=== PATIENT | male | born 1940 | race Hispanic/Latino ===

== ENCOUNTER → 2018-09-12 | Outpatient (CLI) | payer OTHER | END | disposition home or self-care (01) | LOC: SHCH 12:09 | PROVIDERS: ATTEND Internal Medicine Cardiovascular Disease | DX: I08.3 Combined rheumatic disorders of mitral, aortic and tricuspid valves (principal); I10 Essential (primary) hypertension | CPT/HCPCS: 93306 ==

== ENCOUNTER → 2018-09-23 | Outpatient (CLI) | payer OTHER ==
--- NOTE | 2018-09-19 08:57 | NUR ---
PER PATIENT HE THOUGHT HE WAS HAVING A CT SCAN OF STOMACH, PER SON HE THOUGHT HIS DAD WAS HAVING AN EGD OF STOMACH. I TOLD THEM ELNEA WAS NOT WHAT THE HAD ORDERED, PATIENT AND SON REQUESTED TO GO BACK TO OFFICE OF DR. LOPEZ TO GET INFORMATION OF STRESS TEST REQUESTED AND REFUSED TO CONTINUE. NOTIFIED AGGIE AT DR. JOHNSON OFFICE TAHT BOTH PATIENT AND SON ON THEIR WAS TO OFFICE TO TALK TO DR. LOPEZ.
[~2018-09-23] VITALS: Ht 170.2 cm; Wt 70.8 kg
[~2018-09-23] MED LIST: REGADENOSON 0.4 MG/5 ML PF SYG IVP SCH
== END | disposition home or self-care (01) ==
LOC: EDUNIT# 09-15 08:20 → SHCH 09-19 08:37
PROVIDERS: ATTEND Internal Medicine Cardiovascular Disease
DX: I10 Essential (primary) hypertension (principal); I35.0 Nonrheumatic aortic (valve) stenosis
CPT/HCPCS: 78452; 93017; 96374; A9500 ×2; J2785

== ENCOUNTER 2018-10-10 09:44 | Inpatient (IN) | payer OTHER ==
[2018-10-10] VITALS (7 sets, daily range): BP systolic 83–94; BP diastolic 40–65
[~2018-10-10] VITALS: Ht 167.6 cm; Wt 63.0 kg
[~2018-10-10 09:44] MED LIST changes: +ASPI-1181 PO; +CARV6.25 PO; +CHOL100040 PO; +CYAN100099 PO; +DILT120C12 PO; +FURO40TA5 PO; +LEVO50TA11 PO; +POTA-79 PO; +PRAV40TA3 PO; -REGADENOSON 0.4 MG/5 ML PF SYG IVP SCH
[2018-10-10 09:58] LABS: BASOPHILS % (AUTO) 1.3 % (0.0-5.0); EOSINOPHILS % (AUTO) 5.5 % (0.0-8.0); HEMATOCRIT 41.8 % (42-54); LYMPHOCYTES % (AUTO) 36.3 % (21.0-51.0); MEAN CORPUSCULAR HEMOGLOBIN 28.5 pg (27.0-33.0); MEAN CORPUSCULAR HGB CONC 32.8 g/dL (32.0-36.0); MEAN CORPUSCULAR VOLUME 86.8 fL (79-99); MONOCYTES % (AUTO) 8.9 % (3.0-13.0); NUCLEATED RED BLOOD CELLS 0.2 % (0.0-0.19); PLATELET COUNT (AUTO) 193 K/uL (130-400); RED BLOOD CELL COUNT(AUTO) 4.81 MIL/uL (4.50-6.20); RED CELL DISTRIBUTION WIDTH 14.2 % (11.0-15.5); WHITE BLOOD COUNT (AUTO) 12.7 K/uL (4.8-10.8)
[2018-10-10] MEDS ORDERED: FUROSEMIDE 10 MG/ML 4ML VIAL ONE (10:04)
[2018-10-10] MEDS ORDERED: NITROGLYCERIN 1GM/1 INCH PACKET TD ONE (10:05)
[2018-10-10 10:06] LABS: CREATININE 1.4 mg/dL (0.5-1.5)
[2018-10-10 10:08] LABS: INR 0.96 (0.85-1.15); PARTIAL THROMBOPLASTIN TIME 27.1 SEC (26.3-35.5); PROTHROMBIN TIME 10.1 SEC (9.6-11.6)
[2018-10-10 10:10] LABS: ALBUMIN 3.8 g/dL (3.5-5.0); BILIRUBIN,TOTAL 0.9 mg/dL (0.2-1.0); TOTAL PROTEIN, SERUM 8.8 g/dL (6.0-8.3)
[2018-10-10] MEDS ORDERED: PROPOFOL 1000 MG/100 ML 100 ML IV ONE (10:16)
[2018-10-10] MEDS ORDERED: NITROGLYCERIN 50 MG/D5% WATER 1 BOT ONE (10:24)
[2018-10-10 10:54] LABS: B-TYPE NATRIURETIC PEPTIDE 1550 pg/mL (0-100)
[2018-10-10 11:28] LABS: ABG BASE EXCESS -0.9 mmol/L (-2.0-3.0); ABG HCO3 23.3 mmol/L (21.0-28.0); ABG OXYGEN SATURATION 98.9 % (95.0-99.0); ABG PCO2 37 mmHg (35-48)
[2018-10-10 11:42] LABS: APPEARANCE,URINE Clear (CLEAR); BILIRUBIN,URINE Negative (NEGATIVE); COLOR,URINE Yellow (YELLOW); GLUCOSE, URINE (UA) Negative (NEGATIVE); KETONES,URINE Negative (NEGATIVE); LEUKOCYTE ESTERASE ,URINE Negative (NEGATIVE); NITRATE,URINE Negative (NEGATIVE); OCCULT BLOOD,URINE Negative (NEGATIVE); PROTEIN,URINE Negative (NEGATIVE); UROBILINOGEN,URINE 0.2 mg/dL (0.2-1.0)
[2018-10-10] MEDS ORDERED: ENOXAPARIN SODIUM 30 MG/0.3 ML SQ SCH (12:25)
[2018-10-10] MEDS ORDERED: PROPOFOL 1000 MG/100 ML 100 ML IV PRN (12:30)
[2018-10-10] MEDS ORDERED: NITROGLYCERIN 1GM/1 INCH PACKET TD SCH (12:30)
[2018-10-10] MEDS ORDERED: ENOXAPARIN SODIUM 30 MG/0.3 ML SQ ONE (13:19)
[2018-10-10] MEDS ORDERED: MANNITOL 25% 50ML VIAL IV ONE (13:57)
[2018-10-10] MEDS ORDERED: AMINOCAPROIC ACID 250 MG/ML 20 ML VIAL IV ONE (13:57)
[2018-10-10] MEDS ORDERED: CALCIUM CHLORIDE 100 MG/ML 10 ML SYG IVP ONE (13:57)
[2018-10-10] MEDS ORDERED: SODIUM BICARB 8.4% 50ML SYRINGE IVP ONE (13:57)
[2018-10-10] MEDS ORDERED: HEPARIN SODIUM 1000UNIT/ML 10ML VIAL IV ONE (13:57)
[2018-10-10] MEDS ORDERED: ALBUMIN (HUMAN) 25% 50 ML IV ONE (13:57)
[2018-10-10] MEDS ORDERED: PHENYLEPHRINE HCL 10 MG/ML 1ML VIAL IV ONE (13:57)
[2018-10-10] MEDS ORDERED: MAGNESIUM SULFATE 1 GM/2 ML VIAL IM ONE (13:57)
[2018-10-10] MEDS ORDERED: ETOMIDATE 2 MG/ML 10 ML VIAL IVP ONE (15:09)
[2018-10-10] MEDS ORDERED: ROCURONIUM BROMIDE 10MG/1ML 5ML VL IV ONE (15:09)
[2018-10-10] MEDS: HEPARIN SODIUM 5000UNIT/ML 1ML VIAL SQ SCH (16:15)
[2018-10-10] MEDS: FUROSEMIDE 10 MG/ML 4ML VIAL IV SCH ×2 (16:44→20:48)
[2018-10-10 17:10] LABS: ABG BASE EXCESS -0.4 mmol/L (-2.0-3.0); ABG HCO3 21.9 mmol/L (21.0-28.0); ABG OXYGEN SATURATION 98.9 % (95.0-99.0); ABG PCO2 30 mmHg (35-48)
[2018-10-10] MEDS ORDERED: LIDOCAINE HCL-MPF 1% 2ML VIAL IVP PRN (18:45)
--- NOTE | 2018-10-10 20:00 | NUR ---
ASSESSMENT REMAINS ON VENT WITH ORDERED SETTINGS AND SEDATION. ASSESSMENT COMPLETED SEE FLOW SHEET. FAMILY AT BEDSIDE AND QUESTIONS ANSWERED. Addendum: 10/10/18 at 2023 by ELLIOT MUSE RN RN Amended: Links added.
[2018-10-10] MEDS ORDERED: FUROSEMIDE 10 MG/ML 4ML VIAL IVP SCH (21:00)
[2018-10-11] VITALS (24 sets, daily range): BP systolic 90–119; BP diastolic 55–75
[2018-10-11] MEDS: FUROSEMIDE 10 MG/ML 4ML VIAL IV SCH (04:00)
[2018-10-11 04:02] LABS: BASOPHILS % (AUTO) 0.8 % (0.0-5.0); EOSINOPHILS % (AUTO) 0.2 % (0.0-8.0); HEMATOCRIT 36.7 % (42-54); MEAN CORPUSCULAR HGB CONC 33.2 g/dL (32.0-36.0); MEAN CORPUSCULAR VOLUME 84.2 fL (79-99); MONOCYTES % (AUTO) 9.2 % (3.0-13.0); NEUTROPHILS % (AUTO) 80.8 % (40.0-77.0); PLATELET COUNT (AUTO) 175 K/uL (130-400); RED BLOOD CELL COUNT(AUTO) 4.36 MIL/uL (4.50-6.20); RED CELL DISTRIBUTION WIDTH 13.9 % (11.0-15.5); WHITE BLOOD COUNT (AUTO) 13.7 K/uL (4.8-10.8)
[2018-10-11 04:14] LABS: ABG HCO3 23.9 mmol/L (21.0-28.0); ABG OXYGEN SATURATION 97.5 % (95.0-99.0); ABG PCO2 33 mmHg (35-48)
[2018-10-11 04:15] LABS: CREATININE 1.5 mg/dL (0.5-1.5); MAGNESIUM 2.2 mg/dL (1.80-2.40); PHOSPHORUS 4.4 mg/dL (2.5-4.9); POTASSIUM 4.1 mmol/L (3.5-5.1)
[2018-10-11 04:41] LABS: B-TYPE NATRIURETIC PEPTIDE 726 pg/mL (0-100)
[2018-10-11] MEDS: HEPARIN SODIUM 5000UNIT/ML 1ML VIAL SQ SCH ×2 (04:50→16:55)
[2018-10-11] MEDS ORDERED: FUROSEMIDE 10 MG/ML 4ML VIAL IV SCH (09:00)
[2018-10-11] MEDS: FAMOTIDINE/PF 20 MG/2 ML VIAL IV SCH (09:44)
[2018-10-11 09:53] LABS: ABG BASE EXCESS -0.4 mmol/L (-2.0-3.0); ABG HCO3 22.8 mmol/L (21.0-28.0); ABG OXYGEN SATURATION 97.8 % (95.0-99.0); ABG PCO2 33 mmHg (35-48)
[2018-10-11] MEDS ORDERED: RACEPINEPHRINE HCL 2.25% 0.5 ML NEB SOLN NEB PRN (10:00)
--- NOTE | 2018-10-11 10:40 | NUR ---
DAKOTAH Griffith met with pt and daughter Margarita Do [phone]. Pt lives with daughter in her 2nd floor apt. Daughter states he is independent of all ADLS, no DME or HH services. Daughter states she is concerned about pt climbing stairs to apt after dc. Nurse informed, CM to follow and assist as needed Addendum: 10/11/18 at 1042 by SAQIB AIKEN Amended: Links added.
--- NOTE | 2018-10-11 20:05 | NUR ---
ASSESSMENT AWAKE. RESTING IN BED. DENIES PAIN/SOB. ASSESSMENT COMPLETED SEE FLOW SHEET. ENCOURAGED TO CALL FOR WANTS OR NEEDS. Addendum: 10/11/18 at 2007 by ELLIOT MUSE RN RN Amended: Links added.
[2018-10-12] VITALS (20 sets, daily range): BP systolic 90–118; BP diastolic 51–72
[2018-10-12 04:18] LABS: CREATININE 1.4 mg/dL (0.5-1.5); POTASSIUM 3.5 mmol/L (3.5-5.1)
[2018-10-12] MEDS: HEPARIN SODIUM 5000UNIT/ML 1ML VIAL SQ SCH ×2 (04:35→16:46)
[2018-10-12] MEDS ORDERED: FUROSEMIDE 10 MG/ML 4ML VIAL IV SCH (09:00)
[2018-10-12] MEDS: FAMOTIDINE/PF 20 MG/2 ML VIAL IV SCH (09:03)
[2018-10-12] MEDS: FUROSEMIDE 10 MG/ML 4ML VIAL IV SCH ×2 (09:03→21:50)
[2018-10-12] MEDS: IPRATROPIUM/ALBUTEROL SULFATE 3 ML SOLUTION IH SCH ×3 (14:27→23:34)
--- NOTE | 2018-10-12 17:30 | NUR ---
RECEIVED FROM ICU WITH REPORT FROM AMADOU MEMBRENO. PT IN NO ACUTE DISTRESS. RESP EVEN, UNLABORED. DENIES ANY CHEST PAIN/DISCOMFORT, SHORTNESS OF BREATH/DIFFICULTY BREATHING. MILD GENERALIZED EDEMA. INSTRUCTED NPO AFTER MN FOR POSSIBLE LHC PROCEDURE TOMORROW. PT/FAMILY VERBALIZED UNDERSTANDING. F/C TO BDS BAG DRAIN DRAINING YELLOW URINE. PIV X2 D/I WITH NO SWELLING, DRAINAGE OR REDNESS. WILL CONTINUE TO MONITOR.
--- NOTE | 2018-10-12 19:25 | NUR ---
Received report ,pt. for heart catheterization tomorrow, NPO post midnight
[2018-10-13] VITALS (12 sets, daily range): BP systolic 85–109; BP diastolic 50–71
--- NOTE | 2018-10-13 | NUR ---
Pt. kept NPO at this time.
[2018-10-13 04:21] LABS: BASOPHILS % (AUTO) 1.3 % (0.0-5.0); HEMATOCRIT 35.9 % (42-54); LYMPHOCYTES % (AUTO) 16.7 % (21.0-51.0); MEAN CORPUSCULAR HEMOGLOBIN 28.1 pg (27.0-33.0); MEAN CORPUSCULAR HGB CONC 33.4 g/dL (32.0-36.0); PLATELET COUNT (AUTO) 168 K/uL (130-400); RED BLOOD CELL COUNT(AUTO) 4.27 MIL/uL (4.50-6.20); RED CELL DISTRIBUTION WIDTH 13.6 % (11.0-15.5); WHITE BLOOD COUNT (AUTO) 8.3 K/uL (4.8-10.8)
[2018-10-13 04:28] LABS: CREATININE 1.4 mg/dL (0.5-1.5); POTASSIUM 3.4 mmol/L (3.5-5.1)
[2018-10-13 04:46] LABS: B-TYPE NATRIURETIC PEPTIDE 834 pg/mL (0-100)
[2018-10-13] MEDS: POTASSIUM CHLORIDE 20MEQ/100ML 100 ML IV PRN (06:21)
[2018-10-13] MEDS ORDERED: IOHEXOL 350 MG/ML 100ML INFUS..BTL IV ONE (07:13)
[2018-10-13] MEDS ORDERED: LIDOCAINE HCL 2% 20ML ONE (07:13)
[2018-10-13] MEDS: IPRATROPIUM/ALBUTEROL SULFATE 3 ML SOLUTION IH SCH ×4 (07:15→23:26)
[2018-10-13] MEDS ORDERED: IOHEXOL-350 50ML VIAL IV ONE (08:08)
[2018-10-13] MEDS: LEVOTHYROXINE 50 MCG TABLET PO SCH (10:16)
[2018-10-13] MEDS: FAMOTIDINE/PF 20 MG/2 ML VIAL IV SCH (10:16)
[2018-10-13] MEDS: CARVEDILOL 3.125 MG TABLET PO SCH ×2 (10:24→21:00)
[2018-10-13] MEDS: ATORVASTATIN CALCIUM 10 MG TABLET PO SCH (21:13)
[2018-10-13] MEDS: ASPIRIN 81 MG EC TAB PO SCH (21:13)
[2018-10-14] VITALS (7 sets, daily range): BP systolic 93–112; BP diastolic 54–65
[2018-10-14 05:00] LABS: BASOPHILS % (AUTO) 1.3 % (0.0-5.0); EOSINOPHILS % (AUTO) 7.8 % (0.0-8.0); HEMATOCRIT 35.1 % (42-54); LYMPHOCYTES % (AUTO) 15.8 % (21.0-51.0); MEAN CORPUSCULAR HEMOGLOBIN 28.4 pg (27.0-33.0); MEAN CORPUSCULAR HGB CONC 33.5 g/dL (32.0-36.0); MEAN CORPUSCULAR VOLUME 84.9 fL (79-99); MONOCYTES % (AUTO) 11.6 % (3.0-13.0); NEUTROPHILS % (AUTO) 63.5 % (40.0-77.0); PLATELET COUNT (AUTO) 160 K/uL (130-400); RED BLOOD CELL COUNT(AUTO) 4.14 MIL/uL (4.50-6.20); RED CELL DISTRIBUTION WIDTH 13.8 % (11.0-15.5); WHITE BLOOD COUNT (AUTO) 6.4 K/uL (4.8-10.8)
[2018-10-14 05:11] LABS: INR 0.97 (0.85-1.15); PARTIAL THROMBOPLASTIN TIME 31.2 SEC (26.3-35.5); PROTHROMBIN TIME 10.2 SEC (9.6-11.6)
[2018-10-14 05:18] LABS: CREATININE 1.2 mg/dL (0.5-1.5); MAGNESIUM 2.1 mg/dL (1.80-2.40); POTASSIUM 3.7 mmol/L (3.5-5.1)
[2018-10-14 05:26] LABS: B-TYPE NATRIURETIC PEPTIDE 843 pg/mL (0-100)
[2018-10-14] MEDS: IPRATROPIUM/ALBUTEROL SULFATE 3 ML SOLUTION IH SCH ×3 (06:53→18:43)
[2018-10-14] MEDS: LEVOTHYROXINE 50 MCG TABLET PO SCH (08:44)
[2018-10-14] MEDS: CARVEDILOL 3.125 MG TABLET PO SCH ×2 (08:45→20:59)
[2018-10-14] MEDS: FAMOTIDINE/PF 20 MG/2 ML VIAL IV SCH (08:45)
--- NOTE | 2018-10-14 13:28 | NUR ---
DR. Cristela KIRK IN ROOM SPEAKING WITH PT. RE:PLAN OF CARE INCLUDING CT SCAN OF CHEST.
--- NOTE | 2018-10-14 13:58 | NUR ---
F/C REMOVED, TOLERATED WELL. CALL LIGHT WITHIN REACH. FAMILY ALLOWED IN ROOM AFTER REMOVAL.
[2018-10-14] MEDS: ASPIRIN 81 MG EC TAB PO SCH (20:59)
[2018-10-14] MEDS: ATORVASTATIN CALCIUM 10 MG TABLET PO SCH (20:59)
[2018-10-14] MEDS: METHYLPREDNISOLONE SOD SUCC 40MG/ML 1ML IVP SCH (21:21)
[2018-10-15] MEDS: IPRATROPIUM/ALBUTEROL SULFATE 3 ML SOLUTION IH SCH ×5 (01:26→23:53)
[2018-10-15 04:03] VITALS: BP 100/61
[2018-10-15 04:44] LABS: HEMATOCRIT 33.6 % (42-54); MEAN CORPUSCULAR HGB CONC 33.6 g/dL (32.0-36.0); MEAN CORPUSCULAR VOLUME 83.2 fL (79-99); PLATELET COUNT (AUTO) 174 K/uL (130-400); RED BLOOD CELL COUNT(AUTO) 4.04 MIL/uL (4.50-6.20); RED CELL DISTRIBUTION WIDTH 13.5 % (11.0-15.5); WHITE BLOOD COUNT (AUTO) 4.1 K/uL (4.8-10.8)
[2018-10-15 04:57] LABS: CREATININE 1.2 mg/dL (0.5-1.5); MAGNESIUM 2.2 mg/dL (1.80-2.40); POTASSIUM 4.4 mmol/L (3.5-5.1)
[2018-10-15] MEDS: LEVOTHYROXINE 50 MCG TABLET PO SCH (06:25)
[2018-10-15 07:45] VITALS: BP 97/58
[2018-10-15] MEDS: FUROSEMIDE 20 MG TABLET PO SCH ×2 (09:19→17:08)
[2018-10-15] MEDS: CARVEDILOL 3.125 MG TABLET PO SCH ×2 (09:20→20:11)
[2018-10-15] MEDS: METHYLPREDNISOLONE SOD SUCC 40MG/ML 1ML IVP SCH ×2 (09:20→20:10)
[2018-10-15] MEDS: FAMOTIDINE/PF 20 MG/2 ML VIAL IV SCH (09:20)
--- NOTE | 2018-10-15 09:30 | NUR ---
LEFT THORACENTESIS DONE BY DR. ELIAS AT BEDSIDE, 500 CC DARK YELLOW FLUID REMOVED. PT TOLERATED PROCEDURE WELL. O2 SAT 97-98% ON ROOM AIR. ORDERS RECEIVED AND CARRIED OUT.
[2018-10-15 10:38] LABS: TOTAL PROTEIN, SERUM 8.2 g/dL (6.0-8.3)
[2018-10-15 11:24] LABS: APPEARANCE BODY FLUID CLEAR (CLEAR); COLOR,BODY FLUID YELLOW (LT YELLOW); SPECIMENTYPE,BODY FLUID PLEURAL
[2018-10-15 11:25] LABS: BODY FLUID RBC 595 /cu. mm.; BODY FLUID WBC 282 /cu. mm.; TOTAL VOLUME,BODY FLUID 510 mL
[2018-10-15 11:33] VITALS: BP 108/63
[2018-10-15 11:47] LABS: BF EOSINOPHIL 2 %; BF LYMPHOCYTE 57 %; BF MESOTHELIAL 31 %
[2018-10-15 15:27] VITALS: BP 90/54
[2018-10-15 20:00] VITALS: BP 107/62
[2018-10-15] MEDS: ASPIRIN 81 MG EC TAB PO SCH (20:10)
[2018-10-15] MEDS: ATORVASTATIN CALCIUM 10 MG TABLET PO SCH (20:10)
[2018-10-16] VITALS (8 sets, daily range): BP systolic 0–104; BP diastolic 47–71
[2018-10-16] MEDS: IPRATROPIUM/ALBUTEROL SULFATE 3 ML SOLUTION IH SCH ×4 (06:21→23:56)
[2018-10-16] MEDS: LEVOTHYROXINE 50 MCG TABLET PO SCH (06:39)
[2018-10-16] MEDS: FUROSEMIDE 20 MG TABLET PO SCH ×2 (10:24→16:12)
[2018-10-16] MEDS: CARVEDILOL 3.125 MG TABLET PO SCH ×2 (10:24→20:59)
[2018-10-16] MEDS: FAMOTIDINE/PF 20 MG/2 ML VIAL IV SCH (10:25)
[2018-10-16] MEDS: ATORVASTATIN CALCIUM 10 MG TABLET PO SCH (21:00)
[2018-10-16] MEDS: ASPIRIN 81 MG EC TAB PO SCH (21:00)
[2018-10-17] VITALS (7 sets, daily range): BP systolic 95–108; BP diastolic 49–67
[2018-10-17] MEDS: LEVOTHYROXINE 50 MCG TABLET PO SCH (06:14)
[2018-10-17] MEDS: IPRATROPIUM/ALBUTEROL SULFATE 3 ML SOLUTION IH SCH ×4 (06:29→23:11)
[2018-10-17] MEDS: FUROSEMIDE 20 MG TABLET PO SCH ×2 (07:08→16:16)
[2018-10-17] MEDS: CARVEDILOL 3.125 MG TABLET PO SCH ×2 (07:08→20:32)
[2018-10-17] MEDS: FAMOTIDINE 20MG TAB 20 MG TAB PO SCH (07:08)
--- NOTE | 2018-10-17 07:45 | NUR ---
ASSESSMENT PT IS AAOX3 DENIES CP DENIES SOB DENIES NV NO COMPLAINTS RESTING IN BED. BREATHING PATTERN IS EVEN AND UNLABORED. CALL LIGHT WITHIN REACH.
--- NOTE | 2018-10-17 12:30 | NUR ---
Status Patient sitting up in chair, eating lunch complaints, call light within reach.
[2018-10-17 14:29] LABS: HEMATOCRIT 37.3 % (42-54); MEAN CORPUSCULAR HEMOGLOBIN 27.4 pg (27.0-33.0); MEAN CORPUSCULAR HGB CONC 32.6 g/dL (32.0-36.0); PLATELET COUNT (AUTO) 215 K/uL (130-400); RED BLOOD CELL COUNT(AUTO) 4.44 MIL/uL (4.50-6.20); RED CELL DISTRIBUTION WIDTH 13.9 % (11.0-15.5); WHITE BLOOD COUNT (AUTO) 7.8 K/uL (4.8-10.8)
[2018-10-17 14:40] LABS: CREATININE 1.3 mg/dL (0.5-1.5); HEMOGLOBIN A1C 6.3 % (4.0-6.0); POTASSIUM 3.8 mmol/L (3.5-5.1)
[2018-10-17 14:44] LABS: INR 0.98 (0.85-1.15); PROTHROMBIN TIME 10.3 SEC (9.6-11.6)
--- NOTE | 2018-10-17 15:00 | NUR ---
Consent obtained for surgery Patient aware to be nothing by mouth after midnight. Family at bedside.
[2018-10-17] MEDS: ATORVASTATIN CALCIUM 10 MG TABLET PO SCH (20:32)
[2018-10-17] MEDS: ASPIRIN 81 MG EC TAB PO SCH (21:00)
[2018-10-18] VITALS (20 sets, daily range): BP systolic 97–200; BP diastolic 48–89
--- NOTE | 2018-10-18 01:51 | NUR ---
PATIENT RESTING IN BED. DENIES CHEST PAIN OR SOB. SCHEDULED FOR VALVE REPLACEMENT IN AM. PATIENT NPO SINCE MIDNIGHT.
[2018-10-18 03:48] LABS: BASOPHILS % (AUTO) 2.5 % (0.0-5.0); EOSINOPHILS % (AUTO) 8.8 % (0.0-8.0); HEMATOCRIT 32.6 % (42-54); LYMPHOCYTES % (AUTO) 28.5 % (21.0-51.0); MEAN CORPUSCULAR HEMOGLOBIN 28.4 pg (27.0-33.0); MEAN CORPUSCULAR HGB CONC 33.6 g/dL (32.0-36.0); MEAN CORPUSCULAR VOLUME 84.5 fL (79-99); MONOCYTES % (AUTO) 11.9 % (3.0-13.0); NEUTROPHILS % (AUTO) 48.3 % (40.0-77.0); NUCLEATED RED BLOOD CELLS 0.1 % (0.0-0.19); PLATELET COUNT (AUTO) 176 K/uL (130-400); RED BLOOD CELL COUNT(AUTO) 3.85 MIL/uL (4.50-6.20); RED CELL DISTRIBUTION WIDTH 13.6 % (11.0-15.5); WHITE BLOOD COUNT (AUTO) 6.9 K/uL (4.8-10.8)
[2018-10-18 03:54] LABS: INR 1.01 (0.85-1.15); PROTHROMBIN TIME 10.6 SEC (9.6-11.6)
[2018-10-18 03:58] LABS: CREATININE 1.3 mg/dL (0.5-1.5); POTASSIUM 3.8 mmol/L (3.5-5.1)
[2018-10-18] MEDS: IPRATROPIUM/ALBUTEROL SULFATE 3 ML SOLUTION IH SCH ×4 (06:19→23:22)
[2018-10-18] MEDS: LEVOTHYROXINE 50 MCG TABLET PO SCH (06:34)
[2018-10-18] MEDS: FAMOTIDINE 20MG TAB 20 MG TAB PO SCH (08:00)
--- NOTE | 2018-10-18 08:00 | NUR ---
ASSESSMENT PT IS AAOX3 DENIES CP DENIES SOB DENIES NV NO COMPLAINTS RESTING IN BED. NPO STATUS FOR VALVE SURGERY TODAY. CALL LIGHT WITHIN REACH.
[2018-10-18] MEDS: FUROSEMIDE 20 MG TABLET PO SCH (08:10)
[2018-10-18] MEDS: CARVEDILOL 3.125 MG TABLET PO SCH (08:54)
[2018-10-18] MEDS ORDERED: NITROGLYCERIN 50 MG/D5% WATER 1 BOT ONE (09:29)
[2018-10-18] MEDS ORDERED: SODIUM CHLORIDE 0.9% 1000ML 1,000 ML IV ONE (09:30)
[2018-10-18] MEDS ORDERED: CLINDAMYCIN 900 MG/D5% WATER 50 ML IV ONE (09:30)
--- NOTE | 2018-10-18 09:41 | NUR ---
PREOP PREP pt wiped with chlorhexidine gluconate 2% cloth by Quentin Dominguez Addendum: 10/18/18 at 0944 by EVANGELISTA AUSTIN RN RN Amended: Links added.
--- NOTE | 2018-10-18 09:42 | NUR ---
DOWN TO OR VIA BED WITH OR STAFF, TELE PACK REMOVED
[2018-10-18] MEDS ORDERED: DELNIDO FORMULA 1 BAG IV ONE (10:21)
[2018-10-18] MEDS ORDERED: THROMBIN-JMI 5000 UNIT/VIAL TP ONE (10:21)
[2018-10-18] MEDS ORDERED: PROTAMINE SULFATE 10 MG/ML 25ML VIAL IV ONE (10:52)
[2018-10-18] MEDS ORDERED: PROPOFOL 10 MG/ML 20ML VIAL IV ONE (10:52)
[2018-10-18] MEDS ORDERED: HEPARIN SODIUM 1000UNIT/ML 10ML VIAL ONE (10:52)
[2018-10-18] MEDS ORDERED: ESMOLOL HCL 10 MG/ML 10 ML VIAL ONE (10:52)
[2018-10-18] MEDS ORDERED: AMINOCAPROIC ACID 250 MG/ML 20 ML VIAL IV ONE (10:52)
[2018-10-18] MEDS ORDERED: NOREPINEPHRINE BITARTRATE 1 MG/1 ML ML IV ONE (10:52)
[2018-10-18] MEDS ORDERED: SODIUM BICARB 50MEQ 50ML VIAL ONE (10:52)
[2018-10-18] MEDS ORDERED: FENTANYL CITRATE PF 50 MCG/1 ML 20ML VIAL IJ ONE (10:52)
[2018-10-18] MEDS ORDERED: MIDAZOLAM HCL 1 MG/ML 5ML VIAL ONE (10:52)
[2018-10-18] MEDS ORDERED: LIDOCAINE PF 2% 5ML ABBOJECT ONE (10:52)
[2018-10-18] MEDS ORDERED: EPINEPHRINE 1 MG/ML AMPULE ONE (10:52)
[2018-10-18] MEDS ORDERED: ROCURONIUM 10MG/1ML SYR 10 MG/ML ML ONE (10:53)
[2018-10-18] MEDS ORDERED: CLINDAMYCIN 900 MG/D5% WATER 50 ML IV SCH ×2 (11:00→21:00)
[2018-10-18] MEDS ORDERED: OCTYL 2-CYANOACRYLATE 1 EACH TP ONE (11:33)
[2018-10-18 11:34] LABS: ABG BASE EXCESS 1.1 mmol/L (-2.0-3.0); ABG HCO3 24.2 mmol/L (21.0-28.0); ABG OXYGEN SATURATION 99.3 % (95.0-99.0); ABG PCO2 33 mmHg (35-48)
[2018-10-18] MEDS ORDERED: ROPIVACAINE 0.5% 5MG/ML 30ML IJ ONE (11:34)
[2018-10-18] MEDS ORDERED: BACITRACIN 50,000 UNIT VIAL ONE (11:34)
[2018-10-18 12:09] LABS: ABG BASE EXCESS 3.1 mmol/L (-2.0-3.0); ABG HCO3 25.7 mmol/L (21.0-28.0); ABG OXYGEN SATURATION 99.2 % (95.0-99.0); ABG PCO2 31 mmHg (35-48)
[2018-10-18 12:34] LABS: ABG BASE EXCESS 4.1 mmol/L (-2.0-3.0); ABG HCO3 26.3 mmol/L (21.0-28.0); ABG OXYGEN SATURATION 98.9 % (95.0-99.0); ABG PCO2 30 mmHg (35-48)
[2018-10-18] MEDS ORDERED: SODIUM CHLORIDE 0.9% 500ML 500 ML IV SCH (12:58)
[2018-10-18] MEDS ORDERED: MAGNESIUM 2GM PREMIX 50ML 50 ML IV PRN (13:00)
[2018-10-18] MEDS ORDERED: POTASSIUM PHOS 15 mMOL+NS250ML 250 ML IV PRN (13:00)
[2018-10-18] MEDS ORDERED: MORPHINE SULFATE 2 MG/ML 1ML SYG IV PRN (13:00)
[2018-10-18] MEDS ORDERED: SODIUM CHLORIDE 0.9% 1000ML 1,000 ML IV SCH (13:00)
[2018-10-18] MEDS ORDERED: AMINOCAPROIC ACID 15,000 MG in SODIUM CHLORIDE 0.9% 250 ML IV SCH (13:00)
[2018-10-18] MEDS ORDERED: SODIUM CHLORIDE 0.9% 250 ML IV PRN (13:00)
[2018-10-18] MEDS ORDERED: ONDANSETRON HCL 4 MG/2 ML VIAL IV PRN (13:00)
[2018-10-18] MEDS ORDERED: ACETAMINOPHEN 325 MG TAB PO PRN ×2 (13:00)
[2018-10-18] MEDS ORDERED: GLUCAGON 1MG KIT 1 MG ML IM PRN (13:00)
[2018-10-18] MEDS ORDERED: TRAMADOL HCL 50 MG TABLET PO PRN ×2 (13:00)
[2018-10-18] MEDS ORDERED: MORPHINE SULFATE 4 MG/1ML SYG IV PRN (13:00)
[2018-10-18] MEDS ORDERED: POTASSIUM CHLORIDE 20MEQ/100ML 100 ML IV PRN (13:00)
[2018-10-18] MEDS ORDERED: DEXTROSE 50%-WATER 50 ML DISP.SYRIN IV PRN (13:00)
[2018-10-18] MEDS ORDERED: EPINEPHRINE 2 MG in DEXTROSE 5%-WATER 250 ML IV PRN (13:00)
[2018-10-18] MEDS ORDERED: PROPOFOL 1000 MG/100 ML 100 ML IV PRN (13:00)
[2018-10-18] MEDS ORDERED: NOREPINEPHRINE 4MG/NS 250ML 250 ML IV PRN (13:00)
[2018-10-18] MEDS ORDERED: INSULIN REGULAR, HUMAN 3ML 100 UNIT in SODIUM CHLORIDE 0.9% 99 ML IV SCH ×2 (13:00)
[2018-10-18] MEDS ORDERED: ACETAMINOPHEN 650 MG SUPPOSITORY RC PRN (13:00)
[2018-10-18] MEDS ORDERED: SODIUM CHLORIDE 0.9% 10 ML VIAL IVP PRN (13:00)
[2018-10-18] MEDS ORDERED: NITROGLYCERIN 50 MG/D5% WATER 250 BOT IV SCH (13:00)
[2018-10-18] MEDS ORDERED: ALBUMIN (HUMAN) 5% 250 ML IV PRN (13:00)
[2018-10-18 13:31] LABS: ABG BASE EXCESS -1.2 mmol/L (-2.0-3.0); ABG HCO3 22.4 mmol/L (21.0-28.0); ABG OXYGEN SATURATION 99.1 % (95.0-99.0); ABG PCO2 33 mmHg (35-48)
[2018-10-18] MEDS ORDERED: EPHEDRINE SULFATE 50 MG/ML AMPULE ONE (13:39)
--- NOTE | 2018-10-18 13:43 | NUR ---
RECEIVE PT FROM O.R. STAFF- TRANSITION IN PROGRESS. ET TUBE INTACT AND PT PLACED ON VENT WITH BBS PRESENT. ASSISTANT DISTRICT ATTORNEY ON. PULSES PRESENT
[2018-10-18] MEDS ORDERED: ROPIVACAINE 0.2% 2MG/ML 100ML VIAL IJ ONE (13:54)
--- NOTE | 2018-10-18 14:00 | NUR ---
PT IS SEDATE. UNRESPONSIVE AT PRESENT TIME. WILL CONTINUE TO MONITOR . I ASSESSED OGT TUBE THAT PT ARRIVED WITH AND IT IS NOT IN PLACE .UNABLE TO HEAR AIR BOLUS OVER EPIGASTRIUM. I WAS UNABLE TO REPOSITION IT . OGT TUBE REMOVED INTACT. NOT REINSERTED . OTHERWISE STABLE .PLEASE REFER TO ASSESSMENT FLOW SHEET
[2018-10-18 14:11] LABS: ABG BASE EXCESS -3.1 mmol/L (-2.0-3.0); ABG HCO3 20.7 mmol/L (21.0-28.0); ABG OXYGEN SATURATION 98.5 % (95.0-99.0); ABG PCO2 33 mmHg (35-48)
[2018-10-18] MEDS: SODIUM BICARB 50MEQ 50ML VIAL IV PRN ×2 (14:30→20:25)
--- NOTE | 2018-10-18 14:30 | NUR ---
FAMILY IN TO SEE PT.
[2018-10-18 15:06] LABS: HEMATOCRIT 28.2 % (42-54); MEAN CORPUSCULAR HEMOGLOBIN 28.2 pg (27.0-33.0); MEAN CORPUSCULAR HGB CONC 33.1 g/dL (32.0-36.0); MEAN CORPUSCULAR VOLUME 85.1 fL (79-99); PLATELET COUNT (AUTO) 125 K/uL (130-400); RED BLOOD CELL COUNT(AUTO) 3.32 MIL/uL (4.50-6.20); WHITE BLOOD COUNT (AUTO) 14.7 K/uL (4.8-10.8)
[2018-10-18 15:12] LABS: CREATININE 0.9 mg/dL (0.5-1.5); MAGNESIUM 2.9 mg/dL (1.80-2.40); POTASSIUM 4.4 mmol/L (3.5-5.1)
[2018-10-18 15:13] LABS: INR 1.19 (0.85-1.15); PARTIAL THROMBOPLASTIN TIME 30.3 SEC (26.3-35.5); PROTHROMBIN TIME 12.5 SEC (9.6-11.6)
[2018-10-18] MEDS ORDERED: Q-PUMP 1 EACH IRRIG SCH (16:00)
--- NOTE | 2018-10-18 16:22 | NUR ---
PT NOW AWAKE AND FOLLOWING COMMANDS. VENT RATE DECREASED TO 10 PER R.T.
[2018-10-18 16:23] LABS: ABG BASE EXCESS -0.2 mmol/L (-2.0-3.0); ABG HCO3 23.1 mmol/L (21.0-28.0); ABG OXYGEN SATURATION 98.5 % (95.0-99.0); ABG PCO2 34 mmHg (35-48)
[2018-10-18] MEDS: CALCIUM GLUCONATE 1 GM in SODIUM CHLORIDE 0.9% 50 ML IV PRN ×2 (17:08→20:19)
--- NOTE | 2018-10-18 17:10 | NUR ---
VENT RATE DECREASED TO 6 PER PROTOCOL. PT IS AWAKE AND FOLLOWING COMMANDS
--- NOTE | 2018-10-18 17:30 | NUR ---
VENT RATE DECREASED TO 4. WILL OBSERVE AND CONTINUE WEANING PROCESS.
[2018-10-18 18:18] LABS: ABG BASE EXCESS 1.6 mmol/L (-2.0-3.0); ABG OXYGEN SATURATION 97.9 % (95.0-99.0); ABG PCO2 46 mmHg (35-48)
--- NOTE | 2018-10-18 18:34 | NUR ---
PT IS AWAKE AND ALERT, HE DOES NOT PERFORM WEANING PARAMETER CORRECTLY. I HAVE NOTIFIED DR MARTINEZ AND INFORMED HIM OF V/S,PT CONDITION,RESPIRATORY EFFORT , IO'S. ORDERS RECEIVED TO EXTUBATE PATIENT
[2018-10-18] MEDS: CLINDAMYCIN 900 MG/D5% WATER 50 ML IV SCH (18:47)
--- NOTE | 2018-10-18 18:55 | NUR ---
PT EXTUBATED-PLACED ON 40% COOL MSIT
--- NOTE | 2018-10-18 19:10 | NUR ---
HAND OFF REPORT GIVEN TO DEBORAH TOBAR
[2018-10-18] MEDS: ASPIRIN 81 MG EC TAB PO SCH (19:22)
[2018-10-18] MEDS: ATORVASTATIN CALCIUM 10 MG TABLET PO SCH (19:23)
[2018-10-18 20:24] LABS: ABG HCO3 24.7 mmol/L (21.0-28.0); ABG OXYGEN SATURATION 98.9 % (95.0-99.0); ABG PCO2 45 mmHg (35-48)
[2018-10-19] VITALS (25 sets, daily range): BP systolic 102–151; BP diastolic 43–67
[2018-10-19] MEDS ORDERED: CALCIUM GLUCONATE 1 GM/10 ML VIAL IV ONE (00:38)
[2018-10-19] MEDS: CALCIUM GLUCONATE 1 GM in SODIUM CHLORIDE 0.9% 50 ML IV PRN ×2 (00:41→04:46)
[2018-10-19] MEDS ORDERED: HEPARIN SODIUM 5000UNIT/ML 1ML VIAL ONE (00:41)
[2018-10-19] MEDS: CLINDAMYCIN 900 MG/D5% WATER 50 ML IV SCH ×2 (02:50→11:48)
[2018-10-19 04:18] LABS: ABG BASE EXCESS 1.8 mmol/L (-2.0-3.0); ABG HCO3 27.6 mmol/L (21.0-28.0); ABG OXYGEN SATURATION 98.7 % (95.0-99.0); ABG PCO2 48 mmHg (35-48)
[2018-10-19 04:25] LABS: HEMATOCRIT 29.6 % (42-54); MEAN CORPUSCULAR HEMOGLOBIN 27.7 pg (27.0-33.0); MEAN CORPUSCULAR HGB CONC 32.9 g/dL (32.0-36.0); MEAN CORPUSCULAR VOLUME 84.4 fL (79-99); PLATELET COUNT (AUTO) 153 K/uL (130-400); RED BLOOD CELL COUNT(AUTO) 3.51 MIL/uL (4.50-6.20); RED CELL DISTRIBUTION WIDTH 14.2 % (11.0-15.5); WHITE BLOOD COUNT (AUTO) 13.3 K/uL (4.8-10.8)
[2018-10-19 04:48] LABS: CREATININE 1.1 mg/dL (0.5-1.5); MAGNESIUM 2.4 mg/dL (1.80-2.40); PHOSPHORUS 4.7 mg/dL (2.5-4.9); POTASSIUM 4.4 mmol/L (3.5-5.1)
[2018-10-19 04:52] LABS: INR 1.07 (0.85-1.15); PARTIAL THROMBOPLASTIN TIME 22.6 SEC (26.3-35.5); PROTHROMBIN TIME 11.2 SEC (9.6-11.6)
--- NOTE | 2018-10-19 05:00 | NUR ---
BATH PT GIVEN BED BATH AND TRANSFERRED TO CHAIR. PT TOLERATED WELL NO ADVERSE REACTIONS NOTED OR VOICED.
--- NOTE | 2018-10-19 05:30 | NUR ---
TRANSFER PT TRANSFERRED TO ROOM 218 AT THIS TIME. PT SAFETY MAINTAINED WILL CONTINUE TO MONITOR.
[2018-10-19] MEDS: LEVOTHYROXINE 50 MCG TABLET PO SCH (06:07)
[2018-10-19] MEDS: IPRATROPIUM/ALBUTEROL SULFATE 3 ML SOLUTION IH SCH ×4 (06:40→23:09)
--- NOTE | 2018-10-19 08:00 | NUR ---
DR. CORDOVA IN TO SEE PT. PLAN OF CARE DISCUSSED. NEW ORDERS RECEIVED AND NOTED.
[2018-10-19] MEDS: FUROSEMIDE 10 MG/ML 2ML VIAL IV SCH ×2 (08:25→20:02)
[2018-10-19] MEDS: FAMOTIDINE 20MG TAB 20 MG TAB PO SCH (08:25)
[2018-10-19] MEDS: ENOXAPARIN SODIUM 30 MG/0.3 ML SQ SCH (10:51)
--- NOTE | 2018-10-19 15:30 | NUR ---
Epi drip weaned off. Tolerating well. Sbp 100-110s. Denies any complaints. Sitting in recliner comfortably.
--- NOTE | 2018-10-19 15:49 | NUR ---
RDSCREEN - LOS X 9 DAYS Patient PostOp Aortic stenosis. Patient tolerating CVR diet with no report of GI distress. Patient LBM 10/16/18. Patient monitored labs: BUN 20, Glu 127. SAURABH to continue to monitor. Please notify SAURABH as nutritional concerns arise. Thank you. Addendum: 10/19/18 at [address] Amended: Links added.
--- NOTE | 2018-10-19 19:00 | NUR ---
ASSESSMENT ASSUMED CARE. AA&OX3. SITTING UP IN CARDIAC CHAIR. NO DISTRESS NOTED. UNLABORED RESPIRATIONS. DENIES PAIN & DISCOMFORT AT THIS TIME. CHEST TUBE SECURE & PATENT. AMBU PUMP SECURE & INFUSING 8ML/HR. MILLER CATHETER SECURE & PATENT. BEDSIDE MONITORING. SINUS RHYTHM HR 86. FAMILY IN ROOM. INSTRUCTED ON PLAN OF CARE. CALL LIGHT WITHIN REACH. INSTRUCTED TO CALL FOR ASSISTANCE.
[2018-10-19] MEDS: ASPIRIN 81 MG EC TAB PO SCH (20:02)
[2018-10-19] MEDS: ATORVASTATIN CALCIUM 10 MG TABLET PO SCH (20:02)
--- NOTE | 2018-10-19 21:00 | NUR ---
ASSISTED BACK TO BED STRONG, STEADY GAIT. TOLERATED WELL. ALL TUBES & LINES SECURE. CALL LIGHT WITHIN REACH. INSTRUCTED TO CALL FOR ASSISTANCE.
[2018-10-20] VITALS (15 sets, daily range): BP systolic 93–137; BP diastolic 43–64
[2018-10-20 03:39] LABS: MEAN CORPUSCULAR HEMOGLOBIN 28.5 pg (27.0-33.0); MEAN CORPUSCULAR HGB CONC 33.5 g/dL (32.0-36.0); PLATELET COUNT (AUTO) 108 K/uL (130-400); RED BLOOD CELL COUNT(AUTO) 3.06 MIL/uL (4.50-6.20); WHITE BLOOD COUNT (AUTO) 11.5 K/uL (4.8-10.8)
[2018-10-20 03:51] LABS: CREATININE 1.1 mg/dL (0.5-1.5); POTASSIUM 3.4 mmol/L (3.5-5.1)
[2018-10-20] MEDS: POTASSIUM CHLORIDE 20MEQ/100ML 100 ML IV PRN (05:46)
[2018-10-20] MEDS: IPRATROPIUM/ALBUTEROL SULFATE 3 ML SOLUTION IH SCH ×4 (06:51→23:41)
[2018-10-20] MEDS: LEVOTHYROXINE 50 MCG TABLET PO SCH (07:09)
--- NOTE | 2018-10-20 07:30 | NUR ---
ASSESSMENT ENCOUNTERED PT UP IN CHAIR, A&OX3, CALM COOPERATIVE AND DOES NOT APPEAR TO BE IN ANY DISTRESS NOR ANY NEURO DEFICITS PRESENT. PT DENIES PAIN, SOB, NAUSEA. CORTIS TO RT IJ, SITE DRY AND INTACT, DRESSINGS TO RT CHEST DRY AND INTACT, CHEST TUBE WITH SEROSANGUINEOUS DRAINAGE WITH PACER WIRES PRESENT AND SECURED TO DRESSING, INCENTIVE SPIROMETER UP AVERAGE OF 250ML PER ATTEMPT, OBSERVATION AND DEMONSTRATION FOR USE OF INCENTIVE SPIROMETER GIVEN AND ENCOURAGED FREQUENT USE EVERY [address] PL[address] AND SECURED WITH STAT LOCK. CALL LIGHT WITHIN REACH.
[2018-10-20] MEDS: FAMOTIDINE 20MG TAB 20 MG TAB PO SCH (07:52)
[2018-10-20] MEDS: FUROSEMIDE 20 MG TABLET PO SCH ×2 (07:52→17:39)
--- NOTE | 2018-10-20 08:25 | NUR ---
DR AGARWAL AT BEDSIDE UPDATE GIVEN, ORDERS RECEIVED.
[2018-10-20] MEDS: ENOXAPARIN SODIUM 30 MG/0.3 ML SQ SCH ×2 (09:00→12:20)
--- NOTE | 2018-10-20 10:55 | NUR ---
MILLER & LUIS FELIPE REMOVED TOLERATED WELL, CALL LIGHT WITHIN REACH.
[2018-10-20] MEDS ORDERED: FUROSEMIDE 10 MG/ML 4ML VIAL IV SCH (12:00)
[2018-10-20] MEDS: CARVEDILOL 3.125 MG TABLET PO SCH ×2 (12:19→21:42)
[2018-10-20 14:03] LABS: APPEARANCE,URINE CLEAR (CLEAR); BILIRUBIN,URINE NEGATIVE (NEGATIVE); COLOR,URINE YELLOW (YELLOW); GLUCOSE, URINE (UA) NEGATIVE (NEGATIVE); KETONES,URINE NEGATIVE (NEGATIVE); LEUKOCYTE ESTERASE ,URINE SMALL (NEGATIVE); NITRATE,URINE NEGATIVE (NEGATIVE); OCCULT BLOOD,URINE TRACE-INTACT (NEGATIVE); PH,URINE 5.5 (5.0-8.0); PROTEIN,URINE NEGATIVE (NEGATIVE); UROBILINOGEN,URINE 0.2 mg/dL (0.2-1.0)
[2018-10-20 14:31] LABS: BACTERIA,URINE Rare /HPF (None Seen); RBC,URINE 0-1 /HPF (0-1)
[2018-10-20 14:33] LABS: MUCUS,URINE Rare LPF (None Seen); SQUAMOUS EPITHELIAL CELL,UR None Seen /HPF (0-2)
[2018-10-20] MEDS ORDERED: POTASSIUM CHLORIDE 20MEQ/100ML 100 ML IV PRN (16:00)
[2018-10-20] MEDS ORDERED: POTASSIUM CHLORIDE 10% ELIXIR 20 MEQ/15 ML UDCUP PO PRN (16:00)
[2018-10-20] MEDS ORDERED: LIDOCAINE HCL-MPF 1% 2ML VIAL IVP PRN (16:00)
[2018-10-20] MEDS ORDERED: POTASSIUM PHOS 15 mMOL+NS250ML 250 ML IV PRN (18:30)
[2018-10-20] MEDS: ASPIRIN 81 MG EC TAB PO SCH (21:41)
[2018-10-20] MEDS: ATORVASTATIN CALCIUM 10 MG TABLET PO SCH (21:42)
[2018-10-21 03:26] VITALS: BP 99/50
[2018-10-21 04:23] LABS: BASOPHILS % (AUTO) 0.8 % (0.0-5.0); EOSINOPHILS % (AUTO) 4.6 % (0.0-8.0); HEMATOCRIT 23.3 % (42-54); LYMPHOCYTES % (AUTO) 10.4 % (21.0-51.0); MEAN CORPUSCULAR HEMOGLOBIN 28.9 pg (27.0-33.0); MEAN CORPUSCULAR HGB CONC 34.3 g/dL (32.0-36.0); MEAN CORPUSCULAR VOLUME 84.1 fL (79-99); MONOCYTES % (AUTO) 10.3 % (3.0-13.0); NEUTROPHILS % (AUTO) 73.9 % (40.0-77.0); PLATELET COUNT (AUTO) 111 K/uL (130-400); RED BLOOD CELL COUNT(AUTO) 2.77 MIL/uL (4.50-6.20); RED CELL DISTRIBUTION WIDTH 14.1 % (11.0-15.5)
[2018-10-21 04:43] LABS: CREATININE 1.2 mg/dL (0.5-1.5); POTASSIUM 3.2 mmol/L (3.5-5.1)
[2018-10-21] MEDS: LEVOTHYROXINE 50 MCG TABLET PO SCH (05:58)
[2018-10-21] MEDS: POTASSIUM CHLORIDE 20 MEQ ERTAB PO PRN ×3 (05:58→17:32)
[2018-10-21 07:00] VITALS: BP 97/49
[2018-10-21] MEDS: IPRATROPIUM/ALBUTEROL SULFATE 3 ML SOLUTION IH SCH ×3 (07:00→19:32)
[2018-10-21] MEDS: ENOXAPARIN SODIUM 30 MG/0.3 ML SQ SCH (08:02)
[2018-10-21] MEDS: FUROSEMIDE 20 MG TABLET PO SCH ×2 (08:03→17:02)
[2018-10-21] MEDS: FAMOTIDINE 20MG TAB 20 MG TAB PO SCH (08:03)
[2018-10-21] MEDS: CARVEDILOL 3.125 MG TABLET PO SCH ×2 (08:04→20:08)
[2018-10-21 11:00] VITALS: BP 93/43
--- NOTE | 2018-10-21 13:00 | NUR ---
AMBU PUMP AND CHEST TUBE X 2 DISCONTINUED. PACER WIRES CLIPPED. PATIENT TOLERATED PROCEDURE.
--- NOTE | 2018-10-21 15:03 | NUR ---
DC PLAN SPOKE TO PATIENT AND CHILDREN. SPENT OVER 30 MIN. PATIENT FINALLY DECIDED ON RETAMA. INFO SENT. PENDING AUTH AND CHEST REMOVAL. PASRR DONE. Addendum: 10/21/18 at 1504 by DIMITRI BROWN RN CM Amended: Links added.
[2018-10-21 16:00] VITALS: BP 94/45
[2018-10-21 19:00] VITALS: BP 103/44
[2018-10-21] MEDS: ASPIRIN 81 MG EC TAB PO SCH (20:12)
[2018-10-21] MEDS: ATORVASTATIN CALCIUM 10 MG TABLET PO SCH (20:12)
[2018-10-21 23:00] VITALS: BP 106/54
--- NOTE | 2018-10-22 | NUR ---
PT HAS BEEN STABLE. WAS ABLE TO AMBULATE WITH MINIMAL ASSIST TO TOILET. STATES NO PAIN. ENCOURAGED TO USE INCENTIVE SPIROMETER. NOTED TO BE WEAK, DOING LESS THAN 200 ON I.S. STATED WOULD CONTINUE UNTIL IMPROVEMENT WAS NOTED.
[2018-10-22] MEDS: IPRATROPIUM/ALBUTEROL SULFATE 3 ML SOLUTION IH SCH ×5 (00:09→23:14)
[2018-10-22 03:00] VITALS: BP 96/46
[2018-10-22] MEDS: POTASSIUM CHLORIDE 20 MEQ ERTAB PO PRN ×3 (03:26→20:39)
[2018-10-22 04:28] LABS: HEMATOCRIT 21.7 % (42-54); MEAN CORPUSCULAR HEMOGLOBIN 29.2 pg (27.0-33.0); MEAN CORPUSCULAR HGB CONC 34.8 g/dL (32.0-36.0); MEAN CORPUSCULAR VOLUME 83.8 fL (79-99); PLATELET COUNT (AUTO) 128 K/uL (130-400); RED BLOOD CELL COUNT(AUTO) 2.59 MIL/uL (4.50-6.20); RED CELL DISTRIBUTION WIDTH 14.2 % (11.0-15.5); WHITE BLOOD COUNT (AUTO) 10.4 K/uL (4.8-10.8)
[2018-10-22 04:44] LABS: CREATININE 1.2 mg/dL (0.5-1.5); MAGNESIUM 1.7 mg/dL (1.80-2.40); POTASSIUM 3.4 mmol/L (3.5-5.1)
[2018-10-22] MEDS: LEVOTHYROXINE 50 MCG TABLET PO SCH (06:01)
[2018-10-22 07:00] VITALS: BP 109/42
[2018-10-22] MEDS: CARVEDILOL 3.125 MG TABLET PO SCH ×2 (10:27→20:34)
[2018-10-22] MEDS: FAMOTIDINE 20MG TAB 20 MG TAB PO SCH (10:27)
[2018-10-22] MEDS: FUROSEMIDE 20 MG TABLET PO SCH (10:27)
[2018-10-22] MEDS: ENOXAPARIN SODIUM 30 MG/0.3 ML SQ SCH (10:32)
[2018-10-22 11:00] VITALS: BP 111/52
[2018-10-22 15:48] VITALS: BP 94/43
[2018-10-22 19:00] VITALS: BP 94/46
[2018-10-22] MEDS: ATORVASTATIN CALCIUM 10 MG TABLET PO SCH (20:39)
[2018-10-22] MEDS: ASPIRIN 81 MG EC TAB PO SCH (20:39)
[2018-10-22 23:00] VITALS: BP 107/54
[2018-10-23 03:57] LABS: CREATININE 0.9 mg/dL (0.5-1.5); MAGNESIUM 2.1 mg/dL (1.80-2.40); PHOSPHORUS 3.2 mg/dL (2.5-4.9); POTASSIUM 4.1 mmol/L (3.5-5.1)
[2018-10-23 04:00] VITALS: BP 100/52
[2018-10-23 04:25] LABS: EOSINOPHILS % (AUTO) 7.9 % (0.0-8.0); HEMATOCRIT 22.7 % (42-54); LYMPHOCYTES % (AUTO) 10.1 % (21.0-51.0); MEAN CORPUSCULAR HEMOGLOBIN 27.9 pg (27.0-33.0); MEAN CORPUSCULAR HGB CONC 33.2 g/dL (32.0-36.0); MONOCYTES % (AUTO) 10.1 % (3.0-13.0); NEUTROPHILS % (AUTO) 70.9 % (40.0-77.0); PLATELET COUNT (AUTO) 173 K/uL (130-400); RED BLOOD CELL COUNT(AUTO) 2.71 MIL/uL (4.50-6.20); RED CELL DISTRIBUTION WIDTH 14.2 % (11.0-15.5); WHITE BLOOD COUNT (AUTO) 9.9 K/uL (4.8-10.8)
[2018-10-23 04:34] LABS: INR 0.97 (0.85-1.15); PARTIAL THROMBOPLASTIN TIME 30.3 SEC (26.3-35.5); PROTHROMBIN TIME 10.2 SEC (9.6-11.6)
[2018-10-23 04:55] LABS: B-TYPE NATRIURETIC PEPTIDE 418 pg/mL (0-100)
[2018-10-23] MEDS: LEVOTHYROXINE 50 MCG TABLET PO SCH (05:44)
[2018-10-23] MEDS: IPRATROPIUM/ALBUTEROL SULFATE 3 ML SOLUTION IH SCH ×4 (06:33→23:15)
[2018-10-23 07:00] VITALS: BP 99/44
[2018-10-23] MEDS: FAMOTIDINE 20MG TAB 20 MG TAB PO SCH (07:59)
[2018-10-23] MEDS: ENOXAPARIN SODIUM 30 MG/0.3 ML SQ SCH (08:00)
[2018-10-23] MEDS: CARVEDILOL 3.125 MG TABLET PO SCH ×2 (08:00→21:00)
[2018-10-23] MEDS ORDERED: CARV3.1262 PO (09:01)
[2018-10-23] MEDS ORDERED: FURO20TA6 PO (09:01)
[2018-10-23 11:00] VITALS: BP 110/54
[2018-10-23 12:50] LABS: APPEARANCE,URINE Clear (CLEAR); BILIRUBIN,URINE Small (NEGATIVE); COLOR,URINE Dark Yellow (YELLOW); GLUCOSE, URINE (UA) Negative (NEGATIVE); KETONES,URINE Negative (NEGATIVE); LEUKOCYTE ESTERASE ,URINE Trace (NEGATIVE); NITRATE,URINE Negative (NEGATIVE); OCCULT BLOOD,URINE Negative (NEGATIVE); PH,URINE 6.5 (5.0-8.0); PROTEIN,URINE Trace mg/dL (NEGATIVE)
[2018-10-23 13:16] LABS: BACTERIA,URINE Rare /HPF (None Seen); MUCUS,URINE Rare LPF (None Seen); RBC,URINE 0-1 /HPF (0-1); SQUAMOUS EPITHELIAL CELL,UR Rare /HPF (0-2); WBC,URINE 0-1 /HPF (0-1)
[2018-10-23 15:57] VITALS: BP 99/51
[2018-10-23 19:48] VITALS: BP 109/56
[2018-10-23] MEDS: ATORVASTATIN CALCIUM 10 MG TABLET PO SCH (20:40)
[2018-10-23] MEDS: ASPIRIN 81 MG EC TAB PO SCH (20:40)
[2018-10-24] VITALS (7 sets, daily range): BP systolic 99–113; BP diastolic 48–61
[2018-10-24 03:28] LABS: EOSINOPHILS % (AUTO) 5.9 % (0.0-8.0); HEMATOCRIT 23.2 % (42-54); LYMPHOCYTES % (AUTO) 9.7 % (21.0-51.0); MEAN CORPUSCULAR HEMOGLOBIN 28.7 pg (27.0-33.0); MEAN CORPUSCULAR HGB CONC 34.2 g/dL (32.0-36.0); MEAN CORPUSCULAR VOLUME 83.9 fL (79-99); MONOCYTES % (AUTO) 9.8 % (3.0-13.0); NEUTROPHILS % (AUTO) 73.6 % (40.0-77.0); PLATELET COUNT (AUTO) 196 K/uL (130-400); RED BLOOD CELL COUNT(AUTO) 2.76 MIL/uL (4.50-6.20); WHITE BLOOD COUNT (AUTO) 8.5 K/uL (4.8-10.8)
[2018-10-24 03:56] LABS: ALBUMIN 2.3 g/dL (3.5-5.0); BILIRUBIN,TOTAL 0.8 mg/dL (0.2-1.0); MAGNESIUM 2.2 mg/dL (1.80-2.40); POTASSIUM 3.6 mmol/L (3.5-5.1); TOTAL PROTEIN, SERUM 6.6 g/dL (6.0-8.3)
[2018-10-24] MEDS: LEVOTHYROXINE 50 MCG TABLET PO SCH (05:40)
[2018-10-24] MEDS: POTASSIUM CHLORIDE 20 MEQ ERTAB PO PRN (05:41)
[2018-10-24] MEDS: IPRATROPIUM/ALBUTEROL SULFATE 3 ML SOLUTION IH SCH ×4 (07:03→23:12)
--- NOTE | 2018-10-24 10:13 | NUR ---
DR. CORDOVA IN ROOM SPEAKING WITH PTAutumn ALLEN MADE AWARE RE:PENDING SNF PLACEMENT; VERBALIZED UNDERSTANDING.
[2018-10-24] MEDS: FAMOTIDINE 20MG TAB 20 MG TAB PO SCH (10:23)
[2018-10-24] MEDS: CARVEDILOL 3.125 MG TABLET PO SCH ×2 (10:24→20:48)
[2018-10-24] MEDS: ENOXAPARIN SODIUM 30 MG/0.3 ML SQ SCH (10:25)
--- NOTE | 2018-10-24 10:33 | NUR ---
DR. Angelika EUBANKS IN ROOM ASSESSING/SPEAKING WITH PT. DR. EUBANKS INFORMING PT. OF AVR AND QUESTIONS ANSWERED; PT. VERBALIZED UNDERSTANDING.
--- NOTE | 2018-10-24 12:18 | NUR ---
DR. MARTÍNEZ IN ROOM SPEAKING WITH PT.
[2018-10-24] MEDS: ATORVASTATIN CALCIUM 10 MG TABLET PO SCH (20:47)
[2018-10-24] MEDS: ASPIRIN 81 MG EC TAB PO SCH (20:47)
[2018-10-25 03:41] LABS: BASOPHILS % (AUTO) 1.3 % (0.0-5.0); HEMATOCRIT 23.6 % (42-54); LYMPHOCYTES % (AUTO) 13.2 % (21.0-51.0); MEAN CORPUSCULAR HEMOGLOBIN 27.9 pg (27.0-33.0); MEAN CORPUSCULAR HGB CONC 33.4 g/dL (32.0-36.0); MEAN CORPUSCULAR VOLUME 83.5 fL (79-99); NEUTROPHILS % (AUTO) 67.5 % (40.0-77.0); PLATELET COUNT (AUTO) 231 K/uL (130-400); RED BLOOD CELL COUNT(AUTO) 2.83 MIL/uL (4.50-6.20); RED CELL DISTRIBUTION WIDTH 14.3 % (11.0-15.5); WHITE BLOOD COUNT (AUTO) 8.5 K/uL (4.8-10.8)
[2018-10-25 03:56] VITALS: BP 109/55
[2018-10-25 03:57] LABS: CREATININE 1.1 mg/dL (0.5-1.5)
[2018-10-25] MEDS: LEVOTHYROXINE 50 MCG TABLET PO SCH (06:08)
[2018-10-25] MEDS: IPRATROPIUM/ALBUTEROL SULFATE 3 ML SOLUTION IH SCH ×4 (06:55→23:24)
[2018-10-25 07:27] VITALS: BP 119/72
--- NOTE | 2018-10-25 08:36 | NUR ---
Cristela TIRADO PA-C, IN ROOM SPEAKING WITH PT. RE:PLAN OF CARE.
[2018-10-25] MEDS: CARVEDILOL 3.125 MG TABLET PO SCH ×2 (09:01→21:22)
[2018-10-25] MEDS: FAMOTIDINE 20MG TAB 20 MG TAB PO SCH (09:01)
[2018-10-25] MEDS: ENOXAPARIN SODIUM 30 MG/0.3 ML SQ SCH (09:02)
[2018-10-25 11:54] VITALS: BP 107/49
--- NOTE | 2018-10-25 11:59 | NUR ---
Slim ARNOLD NP, IN ROOM SPEAKING WITH PT. RE:PLAN OF CARE. QUESTIONS ANSWERED BY FILE CONVERSION OPERATOR.
--- NOTE | 2018-10-25 13:40 | NUR ---
PT NOTE: PATIENT INSTRUCTED ON STEP ASCENDING/DESCENDING SECONDARY TO PATIENT HAS 14 STEPS TO ENTER HIS HOME. PATIENT ASCENDED/DESCENDED 16 STEPS WITH MIN ASSIST X1 + INSTRUCTION ON SAFE TECHNIQUE TO MINIMIZE RISK OF FALLS. PATIENT PRESENTS WITH SAFE ASCENDING/DESCENDING OF STEPS WITH MIN ASSISTX1 FOR ADDED SUPPORT. PATIENT REPORTS HE WILL HAVE HIS DAUGHTER AT HOME TO ASSIST WITH ASCENDING/DESCENDING STEPS. Addendum: 10/25/18 at 1402 by YURIY GALVAN PT Amended: Links added.
--- NOTE | 2018-10-25 14:56 | NUR ---
RD Follow up note Patient tolerating current Regular, Low cholesterol diet with no report of GI distress and PO intake at 100%. Patient reports does not usually eat breakfast and ate 100% at lunch time. Patient does not drink nutrition supplement at home and does not wish to drink currently. Patient LBM 10/23/18. Patient monitored labs: Ca 8.3, Alb 2.3, AST 56, ALT 89. RD to continue to monitor. Please notify RD as nutritional concerns arise. Thank you. Addendum: 10/25/18 at [address] Amended: Links added.
[2018-10-25 15:51] VITALS: BP 106/51
[2018-10-25 19:21] VITALS: BP 113/59
[2018-10-25] MEDS: ATORVASTATIN CALCIUM 10 MG TABLET PO SCH (21:21)
[2018-10-25] MEDS: ASPIRIN 81 MG EC TAB PO SCH (21:22)
[2018-10-25 23:57] VITALS: BP 107/55
[2018-10-26 03:52] VITALS: BP 98/53
[2018-10-26] MEDS: LEVOTHYROXINE 50 MCG TABLET PO SCH (05:53)
[2018-10-26] MEDS: IPRATROPIUM/ALBUTEROL SULFATE 3 ML SOLUTION IH SCH ×2 (06:50→11:00)
[2018-10-26 07:00] VITALS: BP 108/51
[2018-10-26] MEDS: FAMOTIDINE 20MG TAB 20 MG TAB PO SCH (08:05)
[2018-10-26] MEDS: CARVEDILOL 3.125 MG TABLET PO SCH (09:22)
[2018-10-26] MEDS: ENOXAPARIN SODIUM 30 MG/0.3 ML SQ SCH (09:23)
[2018-10-26 11:00] VITALS: BP 97/49
--- NOTE | 2018-10-26 13:15 | NUR ---
JOSEY THOMAS CALLED SAID THAT PATIENT ACCEPTED. LET NIYAH OHARA KNOW. ALREADY HAD ORDERS FOR HOME PATIENT AMBULATING WELL. Addendum: 10/26/18 at 1316 by DIMITRI BROWN RN CM Amended: Links added.
== END 2018-10-26 15:35 | disposition home or self-care (01) | DRG 216 ==
LOC: EDH 09:44 → EDHIP 11:38 → 2CH 15:30 → 2DH 10-12 17:30 → 2CV 10-18 09:56 → 2CH 10-19 05:36 → 2DH 10-20 15:01
PROVIDERS: ADMIT Internal Medicine Pulmonary Disease; ATTEND Internal Medicine Pulmonary Disease
PROC: 5A1935Z Respiratory Ventilation, Less than 24 Consecutive Hours (ICD-10-PCS; 2018-10-10)
PROC: 5A1935Z Respiratory Ventilation, Less than 24 Consecutive Hours (ICD-10-PCS; 2018-10-10)
PROC: B2111ZZ Fluoroscopy of Multiple Coronary Arteries using Low Osmolar Contrast (ICD-10-PCS; 2018-10-13)
PROC: 4A023N6 Measurement of Cardiac Sampling and Pressure, Right Heart, Percutaneous Approach (ICD-10-PCS; 2018-10-13)
PROC: 0W9B3ZZ Drainage of Left Pleural Cavity, Percutaneous Approach (ICD-10-PCS; 2018-10-15)
PROC: 5A1221Z Performance of Cardiac Output, Continuous (ICD-10-PCS; 2018-10-18)
PROC: 02RF08Z Replacement of Aortic Valve with Zooplastic Tissue, Open Approach (ICD-10-PCS; principal; 2018-10-18 11:05)
DX: I35.0 Nonrheumatic aortic (valve) stenosis (principal); J96.01 Acute respiratory failure with hypoxia; I50.33 Acute on chronic diastolic (congestive) heart failure; J98.11 Atelectasis; J91.8 Pleural effusion in other conditions classified elsewhere; I11.0 Hypertensive heart disease with heart failure; E03.9 Hypothyroidism, unspecified; E11.9 Type 2 diabetes mellitus without complications; E78.5 Hyperlipidemia, unspecified; J44.9 Chronic obstructive pulmonary disease, unspecified; Z79.82 Long term (current) use of aspirin; Z88.0 Allergy status to penicillin
CPT/HCPCS: 31500; 32554; 36415; 36600; 71045; 71250; 76998; 80048; 80053; 81001; 81003; 82330; 82435; 82550; 82803; 82947; 82948; 83036; 83605; 83615; 83735; 83880; 84100; 84132; 84155; 84157; 84295; 84484; 85018; 85025; 85027; 85347; 85610; 85730; 86850; 86900; 86901; 86922; 87071; 87205; 88305; 88311; 89051; 93005; 93306; 93318; 93456; 93880; 94002; 94003; 94010; 94640; 94660; 94664; 94667; 94668; 97039; 99291; A7048; C1729; C1887; C1894; G0378; J0171; J0610; J1644; J1650; J1815; J1940; J2001; J2150; J2250; J2370; J2704; J2720; J2795; J2920; J3010; J3475; J3480; J3490; J7030; J7040; P9047; Q9967

== ENCOUNTER → 2024-02-18 | Outpatient (CLI) | payer OTHER ==
[~2024-02-18] MED LIST changes: -ASPI-1181 PO; +ASPI-1443 PO; +CARV3.1262 PO; -CARV6.25 PO; -DILT120C12 PO; -FURO40TA5 PO; -POTA-79 PO
== END | disposition home or self-care (01) ==
LOC: SHCH 08:52
PROVIDERS: ATTEND Internal Medicine Cardiovascular Disease
DX: I35.0 Nonrheumatic aortic (valve) stenosis (principal)
CPT/HCPCS: 93306